=== PATIENT | male | born 1990 | race American Indian/Alaskan Native ===

== ENCOUNTER 2019-05-02 11:20 | Emergency (ER) | payer OTHER ==
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
--- NOTE | 2019-05-02 13:41 | XRay Report ---
XR knee 3V LT INDICATION / CLINICAL INFORMATION: left knee injury. COMPARISON: None available. FINDINGS: BONES/JOINT(S): No acute fracture or subluxation. No significant degenerative changes. No significant joint effusion. SOFT TISSUES: No significant abnormality. ADDITIONAL FINDINGS: None. Signer Name: Randall Sweeney MD Signed: 05/02/2019 1:36 PM Workstation Name: [id number]
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
[2019-05-02] MEDS ORDERED: BOOSTRIX IM ONE (13:56)
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
[2019-05-02 15:38] VITALS: BP 128/86
[2019-05-02] MEDS ORDERED: MORPHINE IV ONE (15:49)
[2019-05-02] MEDS ORDERED: ZOFRAN IV ONE (15:49)
[2019-05-02 15:53] LABS: Basophils % (Auto) 0.3 % (0.0-1.8); Eosinophils % (Auto) 0.1 % (0.0-4.3); Hemoglobin 15.8 gm/dl (11.8-15.2); Lymphocytes # (Auto) 0.9 K/mm3 (1.2-5.4); Lymphocytes % (Auto) 6.5 % (13.4-35.0); Mean Corpuscular HGB Conc 33 % (32-34); Mean Corpuscular Volume 87 fl (84-94); Monocytes # (Auto) 0.7 K/mm3 (0.0-0.8); Monocytes % (Auto) 5.2 % (0.0-7.3); Platelet Count 212 K/mm3 (140-440); Red Blood Count 5.53 M/mm3 (3.65-5.03); Red Cell Distribution Width 13.4 % (13.2-15.2)
[2019-05-02 16:04] LABS: INR 1.1 (0.87-1.13)
[2019-05-02 16:05] LABS: Partial Thromboplastin Time 26.6 Sec. (24.2-36.6)
[2019-05-02 16:20] LABS: Alanine Aminotransferase 17 units/L (7-56); Albumin 4.7 g/dL (3.9-5); BUN/Creatinine Ratio 14; Blood Urea Nitrogen 10 mg/dL (9-20); Calcium 9.7 mg/dL (8.4-10.2); Hemolysis Index 24
== END 2019-05-02 16:48 | disposition other institution (70) ==
LOC: ED 11:20
DX: S06.5X0A Traumatic subdural hemorrhage without loss of consciousness, initial encounter (principal); S80.212A Abrasion, left knee, initial encounter; V49.49XA Driver injured in collision with other motor vehicles in traffic accident, initial encounter; Y93.89 Activity, other specified; Y92.410 Unspecified street and highway as the place of occurrence of the external cause; Y99.8 Other external cause status
CPT/HCPCS: 36415; 70450; 72100; 73562; 80053; 85025; 85610; 85730; 90471; 90715; 96374; 96375; 99291; J2270; J2405